=== PATIENT | female | born 1970 | race Caucasian/White ===

== ENCOUNTER 2021-11-18 14:59 | Emergency (ER) | payer BC ==
[~2021-11-18 14:59] MED LIST: BELVIQ10 MG PO; COLACE100 MG PO; IBUPROFEN600 MG PO; NORCO 10-325 T1 EACH PO
[2021-11-18 17:07] LABS: HEMOGLOBIN 13.9 gm/dl (12.3-15.3); RED BLOOD COUNT 4.49 M/UL (4.00-5.10); WHITE BLOOD COUNT 10.6 K/UL (4.5-11.0)
[2021-11-18 17:22] LABS: BUN/CREATININE RATIO 17 (0-10)
[2021-11-18] MEDS ORDERED: HYDROCODON-ACE1 EAC4 PO (18:56)
[2021-11-21] MEDS ORDERED: LOPRESSOR100 MG PO (07:08)
[2021-11-21] MEDS ORDERED: GLYCOPYRROLATE1 MG PO (07:09)
[2021-11-21] MEDS ORDERED: CLARITIN10 M2 PO (07:09)
[2021-11-21] MEDS ORDERED: PROZAC20 MG PO (07:09)
[2021-11-21] MEDS ORDERED: GLUCOPHAGE 500500 MG PO (07:10)
== END 2021-11-18 19:45 | disposition home or self-care (01) ==
LOC: ER1 14:59
PROVIDERS: Emergency Medicine
DX: S52.501A Unspecified fracture of the lower end of right radius, initial encounter for closed fracture (principal); S30.0XXA Contusion of lower back and pelvis, initial encounter; I10 Essential (primary) hypertension; E11.9 Type 2 diabetes mellitus without complications; W19.XXXA Unspecified fall, initial encounter
CPT/HCPCS: 29125; 72193; 73080; 73110; 73502; 80048; 85025; 99283; Q9967

== ENCOUNTER → 2021-11-21 | Day surgery (SDC) | payer BC ==
[~2021-11-21] VITALS: Ht 162.6 cm; Wt 102.5 kg
[~2021-11-21] MED LIST changes: +CLARITIN10 M2 PO; +GLUCOPHAGE 500500 MG PO; +GLYCOPYRROLATE1 MG PO; +HYDROCODON-ACE1 EAC4 PO; +LOPRESSOR100 MG PO; +PROZAC20 MG PO
== END | disposition home or self-care (01) ==
LOC: OR 06:04
DX: S52.571A Other intraarticular fracture of lower end of right radius, initial encounter for closed fracture (principal); I10 Essential (primary) hypertension; E11.9 Type 2 diabetes mellitus without complications; Z91.048 Other nonmedicinal substance allergy status; Z90.710 Acquired absence of both cervix and uterus; Z20.822 Contact with and (suspected) exposure to COVID-19; W01.0XXA Fall on same level from slipping, tripping and stumbling without subsequent striking against object, initial encounter; Y92.9 Unspecified place or not applicable
CPT/HCPCS: 73110; 76000; J0690; J1100; J1885; J2001; J2250; J2405; J2704; J2795; J3010; J7030; J7120

== ENCOUNTER → 2022-02-01 | Outpatient (CLI) | payer BC | LOC: KOH-I 10:01 | DX: R74.8 Abnormal levels of other serum enzymes (principal); K76.0 Fatty (change of) liver, not elsewhere classified; K83.8 Other specified diseases of biliary tract | CPT/HCPCS: 76700 ==